=== PATIENT | female | born 1965 | race African-American/Black ===

== ENCOUNTER 2021-04-21 16:34 | Inpatient (IN) | payer MEDICAID ==
[~2021-04-21] VITALS: Ht 157.5 cm; Wt 75.7 kg
--- NOTE | 2021-04-21 18:23 | NUR ---
RT Pt is agitated/upset at this time and refusing EKG. Pt states the EKG procedure was done at another facility and does not want to repeat it here.
[2021-04-21] MEDS ORDERED: MAG HYDROX/AL HYDROX/SIMETH 30 ML UDC PO PRN (18:30)
[2021-04-21] MEDS ORDERED: NITROGLYCERIN 0.4 MG/TAB BOTTLE SL PRN (18:30)
[2021-04-21] MEDS ORDERED: DOCUSATE SODIUM 100 MG CAPSULE PO PRN (18:30)
[2021-04-21] MEDS ORDERED: MORPHINE SULFATE INJ 2 MG/ML DISP.SYRIN IV PRN (18:30)
[2021-04-21] MEDS ORDERED: ACETAMINOPHEN 325 MG TABLET PO PRN (18:30)
[2021-04-21] MEDS ORDERED: ONDANSETRON HCL/PF 4 MG/2 ML VIAL IVP PRN (18:30)
[2021-04-21] MEDS ORDERED: HYDR25TA4 PO (18:38)
--- NOTE | 2021-04-21 19:16 | NUR ---
RN NOTES PATIENT IS AGITATED AND YELLING. PATIENT SIGNED AGAINST MEDICAL ADVICE. PATIENT REFUSED TO TAKE THE IV ACCESS, EXPLAINED THE RISK AND BENEFITS PATIENT IS TRYING TO [facility] AND LEFT THE HOSPITAL WITH IV ACCESS CHARGE NURSE CHELY AND HAND BOBBIN CLEANER ADARSH WAS AWARE. REPORTED PATIENT TO [facility] AND THE COARSE WIRE DRAWER NUMBER [id number].
[2021-04-21] MEDS ORDERED: SIMVASTATIN 20 MG TABLET PO SCH (22:00)
[2021-04-22] MEDS ORDERED: ENOXAPARIN SODIUM 60 MG/0.6 ML DISP.SYRIN SQ SCH (09:00)
[2021-04-22] MEDS ORDERED: ASPIRIN 81 MG TAB.CHEW PO SCH (09:00)
== END 2021-04-21 18:45 | disposition left against medical advice (07) | DRG 203 ==
LOC: EDSEX 16:34 → TELE 16:34
PROVIDERS: ADMIT Registered Nurse; ATTEND Registered Nurse
DX: R07.9 Chest pain, unspecified (principal); E66.9 Obesity, unspecified; I10 Essential (primary) hypertension; I44.7 Left bundle-branch block, unspecified; Z86.16 Personal history of COVID-19; Z85.028 Personal history of other malignant neoplasm of stomach; Z91.14 Patient's other noncompliance with medication regimen; Z68.31 Body mass index [BMI] 31.0-31.9, adult; Z72.0 Tobacco use
CPT/HCPCS: G0378